=== PATIENT | male | born 1990 | race Caucasian/White ===

== ENCOUNTER 2019-08-26 20:49 | Emergency (ER) | payer OTHER ==
[~2019-08-26] VITALS: Ht 172.7 cm; Wt 77.3 kg
[2019-08-26 20:55] VITALS: BP 147/89
--- NOTE | 2019-08-26 21:33 | RAD ---
Exam: Right wrist 3 views INDICATION: Fall, pain TECHNIQUE: Frontal, lateral and oblique views of the right wrist Comparisons: None FINDINGS: Bone mineralization is normal. No acute or healed fractures. Soft tissues are unremarkable. Joint spaces are well-maintained. IMPRESSION: No acute osseous abnormality. If the patient is demonstrating snuffbox tenderness recommend splinting with repeat imaging in 5-7 days to rule out an occult scaphoid injury. Electronically signed by: Genet Fontenot MD (08/26/2019 9:30 PM) [id number]
--- NOTE | 2019-08-26 21:34 | PHYS DOC ---
Past History Past Medical History: No Pertinent History Past Surgical History: Other Additional Past Surgical Histo: BACK TUMOR REMOVAL Alcohol Use: None Adult General Chief Complaint Chief Complaint: WRIST PAIN [place] [employer] HPI 29-year-old male presents with right wrist pain. 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 He has fallen and injured his wrist 3 times in the last 6 months. The first time he had x-rays and was diagnosed as a right wrist sprain. He completed physical therapy. The second time which was about 3 months ago he just assumed it was arranged sprain and get home exercises. It did improve. The patient fell again a couple days ago while running and landed on his right outstretched hand. She has had some swelling and is painful. He decided he should get it reevaluated. He denies numbness or tingling. He has good range of motion, but it is painful. He denies any other injuries. Review of Systems Review of Systems Constitutional: Denies fever or chills [] Eyes: Denies change in visual acuity, redness, or eye pain [] HENT: Denies nasal congestion or sore throat [] Respiratory: Denies cough or shortness of breath [] Cardiovascular: No additional information not addressed in HPI [] GI: Denies abdominal pain, nausea, vomiting, bloody stools or diarrhea [] : Denies dysuria or hematuria [] Musculoskeletal: Right wrist pain[] Integument: Denies rash or skin lesions [] Neurologic: Denies headache, focal weakness or sensory changes [] Endocrine: Denies polyuria or polydipsia [] All other systems were reviewed and found to be within normal limits, except as documented in this note. Allergies Allergies Allergies Coded Allergies Type Severity Reaction Last Updated Verified No Known Drug Allergies 08/26/19 No Physical Exam Physical Exam Constitutional: Well developed, well nourished, no acute distress, non-toxic appearance. [] HENT: Normocephalic, atraumatic, bilateral external ears normal, oropharynx moist, no oral exudates, nose normal. [] Eyes: PERRLA, EOMI, conjunctiva normal, no discharge. [] Neck: Normal range of motion, no tenderness, supple, no stridor. [] Cardiovascular:Heart rate regular rhythm, no murmur [] Lungs & Thorax: Bilateral breath sounds clear to auscultation [] Abdomen: Bowel sounds normal, soft, no tenderness, no masses, no pulsatile masses. [] Skin: Warm, dry, no erythema, no rash. [] Back: No tenderness, no CVA tenderness. [] Extremities: Mild tenderness over the posterior right wrist, no ecchymosis or obvious deformity[] Neurologic: Alert and oriented X 3, normal motor function, normal sensory function, no focal deficits noted. [] Psychologic: Affect normal, judgement normal, mood normal. [] Current Patient Data Vital Signs Vital Signs Date Time Temp Pulse Resp B/P (MAP) Pulse Ox O2 Delivery O2 Flow Rate FiO2 08/26/19 20:55 98.7 65 16 147/89 (108) 98 Room Air EKG EKG [] Radiology/Procedures Radiology/Procedures [] Course & Med Decision Making Course & Med Decision Making Pertinent Labs and Imaging studies reviewed. (See chart for details) The patient's x-rays negative for fracture. It's possible that he has a ligamentous sprain or partial tear. I have encouraged him to use ice, ibuprofen and consider an orthopedic consult for further evaluation and management. Patient states verbal understanding. He is stable for discharge at this time. [] Dragon Disclaimer Dragon Disclaimer This electronic medical record was generated, in whole or in part, using a voice recognition dictation system. Departure Departure: Impression: Primary Impression: Right wrist sprain Disposition: HOME, SELF-CARE Condition: STABLE Referrals: PCP,NO (PCP) Patient Instructions: Wrist Pain, [id number] Problem Qualifiers Primary Impression: Right wrist sprain Encounter type: initial encounter Qualified Codes: S63.501A - Unspecified sprain of right wrist, initial encounter SJ LEACH DO Aug 26, 2019 21:34
== END 2019-08-26 21:50 | disposition home or self-care (01) ==
LOC: ER 20:49
DX: S63.501A Unspecified sprain of right wrist, initial encounter (principal); W17.89XA Other fall from one level to another, initial encounter; Y93.02 Activity, running; Y92.89 Other specified places as the place of occurrence of the external cause; Y99.8 Other external cause status
CPT/HCPCS: 73110; 99283

== ENCOUNTER 2021-06-08 08:17 | Emergency (ER) | payer OTHER ==
[~2021-06-08] VITALS: Ht 172.7 cm; Wt 74.4 kg
[2021-06-08] MEDS ORDERED: CYCL10TA19 PO (09:03)
--- NOTE | 2021-06-08 09:03 | PHYS DOC ---
Past History Past Medical History: No Pertinent History Past Surgical History: Other Additional Past Surgical Histo: BACK TUMOR REMOVAL Alcohol Use: None Adult General Chief Complaint Chief Complaint: BACK INJURY HPI HPI Patient is a 30-year-old male presenting for back pain. Onset was 1 month ago when he was performing low weight deadlifts. 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 Did not hear any pops, no ripping or tearing, no loss of bladder or bowel. States he took the following 2 weeks off and provided supportive care to himself, has been utilizing ibuprofen and Tylenol sparingly with occasional lidocaine patches that provide transient relief. Nonetheless, ongoing symptoms after resuming activity that included right lower back pain without radiation prompted him to come in for evaluation. He is new to the area and has not established with on post PCP, he has had no imaging on this, no change in motor or sensory or neuro function Review of Systems Review of Systems Fourteen body systems of review of systems have been reviewed. See HPI for pertinent positives and negative responses, other campuzano all other systems are negative, non-pertinent or non-contributory Allergies Allergies Allergies Coded Allergies Type Severity Reaction Last Updated Verified No Known Drug Allergies 06/08/21 No Physical Exam Physical Exam Constitutional: Well developed, well nourished, no acute distress, non-toxic appearance. HENT: Normocephalic, atraumatic, bilateral external ears normal, oropharynx moist, no oral exudates, nose normal. Eyes: PERRLA, EOMI, conjunctiva normal, no discharge. Neck: Normal range of motion, no tenderness, supple, no stridor. Cardiovascular: Heart rate regular per monitor Lungs & Thorax: No respiratory distress or accessory muscle use, bilateral chest rise Abdomen: Abdomen soft, non-tender, bowel sounds present in all quadrants, no guarding or rebound, nonacute abdomen. Skin: Warm, dry, no erythema, no rash. Back: No midline tenderness or step-offs, no CVA tenderness. Pain present to bilateral PSIS areas without radiation Extremities: No tenderness, no cyanosis, no clubbing, ROM intact, no edema. Neurologic: Alert and oriented X 3, no saddle anesthesia, 2+ bilateral patellar tendon reflexes, normal motor & sensory function, no focal deficits noted. Psychologic: Affect normal, judgement normal, mood normal. Current Patient Data Vital Signs Vital Signs Date Time Temp Pulse Resp B/P (MAP) Pulse Ox O2 Delivery O2 Flow Rate FiO2 06/08/21 08:25 97.9 61 18 128/70 (89) 96 Room Air Vital Signs Date Time Temp Pulse Resp B/P (MAP) Pulse Ox O2 Delivery O2 Flow Rate FiO2 06/08/21 09:30 65 18 117/59 (78) 96 Room Air 06/08/21 08:25 97.9 EKG EKG [] Radiology/Procedures Radiology/Procedures [] Heart Score C/O Chest Pain: No Risk Factors: Risk Factors: DM, Current or recent (<one month) smoker, HTN, HLP, family history of CAD, obesity. Risk Scores: Risk Factors: DM, Current or recent (<one month) smoker, HTN, HLP, family history of CAD, obesity. Course & Med Decision Making Course & Med Decision Making Given History and Exam the patient appears to be at low risk for Spinal Cord Compression Syndrome, Vertebral Malignancy/Mets, acute Spinal Fracture, Vertebral Osteomyelitis, Epidural Abscess, Infected or Obstructing Kidney Stone. Their presentation appears most likely to be secondary to non-emergent musculoskeletal etiology vs non-emergent disc herniation. ED Workup: Defer imaging and labwork for outpatient follow up at this time. Disposition: Discharge with stretching/back exercises and muscle relaxers. St rict return precautions discussed with patient with full understanding. Advised patient to follow up promptly with primary care provider Em Disclaimer Em Disclaimer This electronic medical record was generated, in whole or in part, using a voice recognition dictation system. Departure Departure: Impression: Primary Impression: Lower back pain Disposition: HOME / SELF CARE / HOMELESS Condition: STABLE Referrals: MINDY CARDENAS DO (PCP) Additional Instructions: You were evaluated in the Emergency Department today for back pain. Your evaluation suggests no acute abnormalities which require further intervention at this time. Your pain is most likely due to to a musculoskeletal cause that should improve with supportive care. With that said, it is advised you discuss need for outpatient MRI and likely physical therapy with your primary care physician during scheduled follow-up visit - Move around as tolerated but avoiding heavy lifting. ``Bed rest is not recommended nor is it the best treatment for low back pain. - Medications will help control your discomfort: - -Ibuprofen (800 mg every 8 hours for pain) with food. - -Tylenol - Do not drink alcohol, drive a car, operate machinery, or get up on ladders or heights when taking any prescribed pain medications. - Do not drive home if you received prescribed pain medications here in the ED. Return to the ED immediately if you develop any of the following problems: - Leaking urine or difficulty urinating; - Inability to control your bowels; - New numbness or weakness in your legs or numbness between your legs; - Inability to walk - Fever Scripts Cyclobenzaprine Hcl (CYCLOBENZAPRINE HCL) 10 Mg Tablet 1 TAB PO QHS for back pain, #30 TAB Prov: HILARY MCCORMICK DO 06/08/21 HILARY MCCORMICK DO Jun 08, 2021 09:03
[2021-06-08 09:30] VITALS: BP 117/59
== END 2021-06-08 09:30 | disposition home or self-care (01) ==
LOC: ER 08:17
DX: M54.59 Other low back pain (principal)
CPT/HCPCS: 99283